=== PATIENT | male | born 1985 | race Asian ===

== ENCOUNTER 2017-08-26 13:57 | Emergency (ER) | payer OTHER ==
[2017-08-26 14:15] VITALS: BP 136/75; TEMP 97.9; BMI 21.3
--- NOTE | 2017-08-26 14:15 | PDOC ---
Rapid Medical Evaluation Time Seen by Provider: 08/26/17 14:12 Medical Evaluation: 08/26/17 14:12 I have performed a brief in person evaluation of this patient. The patient presents with chief complaint of : abd pain since last night no nvd no urinary complaints . no PMHX history of appendicitis years ago pain relieved with ibuprofen, last BM today and normal. Pertinent PE findings:none I have ordered the following: urine, The patient will proceed to the ER for further evaluation.
[2017-08-26 14:34] LABS: URINE APPEARANCE CLEAR; URINE BILIRUBIN NEGATIVE (NEGATIVE); URINE BLOOD 1+ (NEGATIVE); URINE COLOR YELLOW; URINE GLUCOSE (UA) NEGATIVE (NEGATIVE); URINE KETONE NEGATIVE (NEGATIVE); URINE NITRITE NEGATIVE (NEGATIVE); URINE PROTEIN NEGATIVE (NEGATIVE); URINE UROBILINOGEN NEGATIVE mg/dL (0.2-1.0)
[2017-08-26 15:12] LABS: URINE MUCUS MANY; URINE RBC 3 /hpf (0-3); URINE WBC 1 /hpf (3-5)
--- NOTE | 2017-08-26 16:44 | PDOC ---
History of Present Illness - General Chief Complaint: Pain, Acute Stated Complaint: ABD PAIN Time Seen by Provider: 08/26/17 14:12 History Source: Patient - History of Present Illness Initial Comments: 08/29/17 06:19 Patient is a 32 y.o. male with no self-reported PMH who presents c/o 1 day h/o abdominal pain. Patient states the pain started yesterday and he denies any nausea/vomiting/diarrhea/constipation as well fever or chills. Patient is tolerating oral intake. Patient does not have a primary care doctor. NKDA Surgical: none Social: denies cigarettes, denies alcohol, denies recreational drugs Past History - Past Medical History Allergies/Adverse Reactions: Allergies Allergy/AdvReac Type Severity Reaction Status Date / Time No Known Allergies Allergy Verified 08/26/17 14:12 - Suicide/Smoking/Psychosocial Hx Smoking History: Never smoked Review of Systems - Review of Systems Constitutional: No: Chills, Fever Respiratory: No: Shortness of Breath Cardiac (ROS): No: Chest Pain ABD/GI: Yes: Abdominal cramping. No: Constipated, Diarrhea, Nausea, Vomiting : No: Burning, Dysuria All Other Systems: Reviewed and Negative *Physical Exam - Vital Signs Last Vital Signs Temp Pulse Resp BP Pulse Ox 97.9 F 108 H 19 136/75 98 08/26/17 14:12 08/26/17 14:12 08/26/17 14:12 08/26/17 14:12 08/26/17 14:12 - Physical Exam General Appearance: Yes: Nourished, Appropriately Dressed Neck: positive: Trachea midline, Supple Respiratory/Chest: positive: Lungs Clear Cardiovascular: positive: S1, S2 Gastrointestinal/Abdominal: positive: Normal Bowel Sounds, Soft. negative: Protuberent, Distended, Guarding, Rebound, Tenderness, Hernia, Mass Musculoskeletal: negative: CVA Tenderness (R), CVA Tenderness (L) Extremity: positive: Normal Capillary Refill, Normal Inspection Integumentary: positive: Normal Color, Dry, Warm Neurologic: positive: Fully Oriented, Alert, Normal Mood/Affect, Normal Response , Motor Strength 5/5 ED Treatment Course - ADDITIONAL ORDERS Additional order review: Laboratory Results 08/26/17 14:20 Urine Color Yellow Urine Appearance Clear Urine pH 5.0 Ur Specific [place] 1.020 Urine Protein Negative Urine Glucose (UA) Negative Urine Ketones Negative Urine Blood 1+ H Urine Nitrite Negative Urine Bilirubin Negative Urine Urobilinogen Negative Urine WBC (Auto) 1 Urine RBC (Auto) 3 Ur Epithelial Cells Rare Urine Mucus Many Medical Decision Making - Medical Decision Making 08/29/17 06:45 Patient is a 32 y.o. male who presents with a c/o abdominal pain. On PE patient is hemodynamically stable, has no TTP in any abdominal quadrants, has normoactive bowel sounds and is tolerating PO intake. Patient given referral to primary care and discharged home. *DC/Admit/Observation/Transfer Diagnosis at time of Disposition: Abdominal pain - Discharge Dispostion Disposition: HOME Condition at time of disposition: Good Admit: No - Referrals Referrals: Elkin Dill MD [Staff Physician] - - Patient Instructions Additional Instructions: Please contact Dr. Elkin Dill to establish a primary care doctor. Please return to the Emergency Department for any worsening or concerning symptoms. - Post Discharge Activity
[2017-08-26 17:02] VITALS: PULSE 79
[2017-08-26 17:19] LABS: URINE LEUK ESTERASE Negative (NEGATIVE)
== END 2017-08-26 17:07 | disposition home or self-care (01) ==
LOC: JER 13:57
DX: R10.9 Unspecified abdominal pain (principal)
CPT/HCPCS: 81003; 81015; 99281-25